=== PATIENT | female | born 1950 | race Caucasian/White ===

== ENCOUNTER 2018-09-02 10:32 | Outpatient (RCR) | payer MEDICARE, OTHER | END 2018-10-21 | disposition home or self-care (01) | LOC: ONC 10:32 | PROVIDERS: ATTEND Radiology Radiation Oncology | DX: Z51.0 Encounter for antineoplastic radiation therapy (principal); C50.412 Malignant neoplasm of upper-outer quadrant of left female breast; Z17.0 Estrogen receptor positive status [ER+] | CPT/HCPCS: 77290; 77295; 77300; 77307; 77334; 77336; 77417; 99204 ==

== ENCOUNTER → 2019-11-05 | Outpatient (CLI) | payer MEDICARE, OTHER ==
--- NOTE | 2019-11-05 19:08 | Diagnostic Imaging Report ---
EXAMINATION: Left knee radiographs, 3 views. COMPARISON: None. HISTORY: 69-year-old female, left knee pain. FINDINGS: There is severe medial compartment joint space loss with [id number] articulation. There is also severe patellofemoral compartment joint space loss. There are prominent tricompartmental osteophytes. There is a potentially fractured patellar osteophyte versus intra-articular body. There is a probable small left knee joint effusion. These are not weightbearing images. IMPRESSION: 1. Severe predominantly medial and patellofemoral compartment osteoarthritis with probable small left knee joint effusion. 2. Potentially fractured patellar osteophyte superiorly versus intra-articular body. Dictated by: Dictated on workstation # [id number]
== END ==
LOC: RAD FS 16:19
PROVIDERS: ATTEND Nurse Practitioner Family
DX: S89.92XA Unspecified injury of left lower leg, initial encounter (principal); M17.12 Unilateral primary osteoarthritis, left knee; X58.XXXA Exposure to other specified factors, initial encounter
CPT/HCPCS: 73562

== ENCOUNTER 2021-08-22 08:51 | Emergency (ER) | payer MEDICARE, OTHER ==
--- NOTE | 2021-08-22 09:16 | ED Abdominal Pain ---
General Stated Complaint: DIARRHEA/VOMITING History of Present Illness Date Seen by Provider: Aug 22, 2021 Time Seen by Provider: 09:03 Initial Comments 71 yr F with PMH of HTN and breast cancer, is here with c/o diarrhea, nausea and vomiting which began on 08/18/21. Symptoms were associated with loss of appetite. Patient's diarrhea has stopped on Saturday, and patient was able to keep down some soup. Then for dinner that day she decided to advance her diet, and had pizza. The pizza triggered her diarrhea and vomiting to restart. Patient denies abdominal pain, chest pain, palpitations, fever, SOB, dizziness, lethargy. No known sick contacts. Patient has not been drinking much water or fluids since she became ill. Pt has not seen her PCP since developing these symptoms. Allergies and Home Medications Allergies Coded Allergies: No Known Drug Allergies (Unverified , 08/22/21) Patient Home Medication List Home Medication List Reviewed: Yes Review of Systems Review of Systems Constitutional: other (loss of appetite) EENTM: No Symptoms Reported Respiratory: No Symptoms Reported Cardiovascular: No Symptoms Reported Gastrointestinal: Diarrhea, Nausea, Poor Appetite, Vomiting Genitourinary: No Symptoms Reported Musculoskeletal: no symptoms reported Skin: no symptoms reported Psychiatric/Neurological: No Symptoms Reported Endocrine: No Symptoms Reported Hematologic/Lymphatic: No Symptoms Reported Physical Exam Vital Signs Vital Signs - First Documented 08/22/21 09:06 Temp 36.5 Pulse 100 Resp 20 B/P (MAP) 175/154 (161) Pulse Ox 95 O2 Delivery Room Air Capillary Refill : Height/Weight/BMI Height: '" Weight: lbs. oz. kg; BMI Method: General Appearance: WD/WN, no apparent distress HEENT: PERRL/EOMI Neck: full range of motion Respiratory: chest non-tender, lungs clear, normal breath sounds, no respiratory distress Cardiovascular: regular rate, rhythm, no edema Gastrointestinal: normal bowel sounds, non tender, soft, no organomegaly Extremities: normal range of motion, non-tender Neurologic/Psychiatric: alert, normal mood/affect, oriented x 3 Skin: normal color Lymphatic: no adenopathy Progress/Results/Core Measures Results/Orders Lab Results Laboratory Tests Test 08/22/21 09:13 08/22/21 09:15 08/22/21 10:15 Range/Units White Blood Count 4.5 4.3-11.0 10^3/uL Red Blood Count 4.12 3.80-5.11 10^6/uL Hemoglobin 12.5 11.5-16.0 g/dL Hematocrit 37 35-52 % Mean Corpuscular Volume 90 80-99 fL Mean Corpuscular Hemoglobin 30 25-34 pg Mean Corpuscular Hemoglobin Concent 34 32-36 g/dL Red Cell Distribution Width 12.8 10.0-14.5 % Platelet Count 137 130-400 10^3/uL Mean Platelet Volume 10.0 9.0-12.2 fL Immature Granulocyte % (Auto) 0 % Neutrophils (%) (Auto) 70 42-75 % Lymphocytes (%) (Auto) 19 12-44 % Monocytes (%) (Auto) 10 0-12 % Eosinophils (%) (Auto) 1 0-10 % Basophils (%) (Auto) 0 0-10 % Neutrophils # (Auto) 3.1 1.8-7.8 10^3/uL Lymphocytes # (Auto) 0.8 L 1.0-4.0 10^3/uL Monocytes # (Auto) 0.5 0.0-1.0 10^3/uL Eosinophils # (Auto) 0.0 0.0-0.3 10^3/uL Basophils # (Auto) 0.0 0.0-0.1 10^3/uL Immature Granulocyte # (Auto) 0.0 0.0-0.1 10^3/uL Sodium Level 138 135-145 MMOL/L Potassium Level 3.6 3.6-5.0 MMOL/L Chloride Level 103 98-107 MMOL/L Carbon Dioxide Level 25 21-32 MMOL/L Anion Gap 10 5-14 MMOL/L Blood Urea Nitrogen 17 7-18 MG/DL Creatinine 0.73 0.60-1.30 MG/DL Estimat Glomerular Filtration Rate 89 BUN/Creatinine Ratio 23 Glucose Level 115 H 70-105 MG/DL Calcium Level 9.2 8.5-10.1 MG/DL Corrected Calcium 9.4 8.5-10.1 MG/DL Total Bilirubin 0.4 0.1-1.0 MG/DL Aspartate Amino Transf (AST/SGOT) 18 5-34 U/L Alanine Aminotransferase (ALT/SGPT) 17 0-55 U/L Alkaline Phosphatase 52 40-136 U/L Total Protein 7.2 6.4-8.2 GM/DL Albumin 3.8 3.2-4.5 GM/DL Lipase 18 8-78 U/L Urine Color YELLOW Urine Clarity CLEAR Urine pH 6.0 5-9 Urine Specific [place] 1.025 H 1.016-1.022 Urine Protein NEGATIVE NEGATIVE Urine Glucose (UA) NEGATIVE NEGATIVE Urine Ketones NEGATIVE NEGATIVE Urine Nitrite NEGATIVE NEGATIVE Urine Bilirubin NEGATIVE NEGATIVE Urine Urobilinogen 0.2 < = 1.0 MG/DL Urine Leukocyte Esterase NEGATIVE NEGATIVE Urine RBC (Auto) NEGATIVE NEGATIVE Urine RBC 0-2 /HPF Urine WBC 2-5 /HPF Urine Squamous Epithelial Cells 2-5 /HPF Urine Crystals NONE /LPF Urine Bacteria TRACE /HPF Urine Casts NONE /LPF Urine Mucus SMALL H /LPF Urine Culture Indicated NO My Orders Orders - OTTO DAMON MD Comprehensive Metabolic Panel (08/22/21 09:17) Lipase (08/22/21 09:17) Ua Culture If Indicated (08/22/21 09:17) Ed Iv/Invasive Line Start (08/22/21 09:17) Cbc With Automated Diff (08/22/21 09:17) Ed Iv/Invasive Line Start (08/22/21 09:17) Ns Iv 1000 Ml (Sodium Chloride 0.9%) (08/22/21 09:30) Ondansetron Injection (Zofran Injectio (08/22/21 09:17) Coronavirus Sars-Cov-2 So 2018 (08/22/21 09:18) Vital Signs/I&O 08/22/21 08/22/21 09:06 11:24 Temp 36.5 Pulse 100 82 Resp 20 18 B/P (MAP) 175/154 (161) 169/93 Pulse Ox 95 96 O2 Delivery Room Air Room Air Progress Progress Note : Progress Note 1. DEHYDRATION / VIRAL GASTROENTERITIS: - Labs and urine: unremarkable, normal white count - NS IVF 1L - Zofran iv - F/u with PCP - [place] diet, adequate water intake, keep PCP appt for next Saturday -The patient was seen in the ED, and treated appropriately to presentation at a specific point in time. Patient is informed that there is a possibility that disease and illness can evolve and change in acuity rapidly or slowly after patient is discharged from the ER. Precautionary advice given to the patient for immediate return to ER if symptoms worsen or do not resolve, and to seek emergency care sooner rather than later. Pt also advised on the importance of PCP follow up and compliance with management and follow up plan. Pt verbally expressed understanding. Departure Impression Primary Impression: Viral gastroenteritis Additional Impression: Dehydration Disposition: 01 HOME, SELF-CARE Condition: Improved Departure-Patient Inst. Referrals: JOSE J DC APRN (PCP/Family) Primary Care Physician Patient Instructions: Viral Gastroenteritis, Dehydration, Adult (DC) Add. Discharge Instructions: F/u with PCP : keep Saturday appointment [place] diet/ adequate water intake The patient was seen in the ED, and treated appropriately to presentation at a specific point in time. Patient is informed that there is a possibility that disease and illness can evolve and change in acuity rapidly or slowly after patient is discharged from the ER. Precautionary advice given to the patient for immediate return to ER if symptoms worsen or do not resolve, and to seek emergency care sooner rather than later. Pt also advised on the importance of PCP follow up and compliance with management and follow up plan. Pt verbally expressed understanding. OTTO DAMON MD Aug 22, 2021 09:16
[2021-08-22] MEDS ORDERED: ONDANSETRON 4 MG/2 ML (SDV) Z0FRAN IVP STA (09:17)
[2021-08-22] MEDS ORDERED: NS IV 1000 ML 1,000 ML IV SCH (09:30)
[2021-08-22 09:38] LABS: BASOPHILS % (AUTO) 0 % (0-10); EOSINOPHILS % (AUTO) 1 % (0-10); HEMATOCRIT 37 % (35-52); HEMOGLOBIN 12.5 g/dL (11.5-16.0); LYMPHOCYTES # (AUTO) 0.8 10^3/uL (1.0-4.0); LYMPHOCYTES % (AUTO) 19 % (12-44); MEAN CORPUSCULAR HEMOGLOBIN 30 pg (25-34); MEAN CORPUSCULAR HGB CONC 34 g/dL (32-36); MEAN CORPUSCULAR VOLUME 90 fL (80-99); MONOCYTES # (AUTO) 0.5 10^3/uL (0.0-1.0); MONOCYTES % (AUTO) 10 % (0-12); NEUTROPHILS # (AUTO) 3.1 10^3/uL (1.8-7.8); NEUTROPHILS % (AUTO) 70 % (42-75); PLATELET COUNT 137 10^3/uL (130-400); WHITE BLOOD COUNT 4.5 10^3/uL (4.3-11.0)
[2021-08-22 09:49] LABS: BILIRUBIN,TOTAL 0.4 MG/DL (0.1-1.0); CALCIUM 9.2 MG/DL (8.5-10.1); CREATININE SERUM 0.73 MG/DL (0.60-1.30); POTASSIUM 3.6 MMOL/L (3.6-5.0)
[2021-08-22 09:50] LABS: ALBUMIN 3.8 GM/DL (3.2-4.5); TOTAL PROTEIN 7.2 GM/DL (6.4-8.2)
[2021-08-22 10:30] LABS: BILIRUBIN,URINE NEGATIVE (NEGATIVE); CLARITY,URINE CLEAR; COLOR,URINE YELLOW; GLUCOSE, URINE (UA) NEGATIVE (NEGATIVE); KETONES,URINE NEGATIVE (NEGATIVE); LEUKOCYTE ESTERASE ,URINE NEGATIVE (NEGATIVE); NITRITE,URINE NEGATIVE (NEGATIVE); PROTEIN,URINE NEGATIVE (NEGATIVE)
[2021-08-22 10:52] LABS: BACTERIA,URINE TRACE /HPF; RBC,URINE 0-2 /HPF
[2021-08-22 11:24] VITALS: BP 169/93
== END 2021-08-22 11:20 | disposition home or self-care (01) ==
LOC: EDUNIT# 08:51 → ER FS 08:55
DX: A08.4 Viral intestinal infection, unspecified (principal); E86.0 Dehydration; I10 Essential (primary) hypertension; Z20.822 Contact with and (suspected) exposure to COVID-19
CPT/HCPCS: 36415; 80053; 81000; 83690; 85025; 87635